=== PATIENT | male | born 1960 | race Caucasian/White ===

== ENCOUNTER 2018-07-01 17:49 | Emergency (ER) | payer OTHER ==
[~2018-07-01] VITALS: Ht 165.1 cm; Wt 74.0 kg
[2018-07-01 17:54] VITALS: Ht 165.1 cm; Wt 74.0 kg
[2018-07-01] MEDS ORDERED: IBUPROFEN 800 MG TAB PO ONE (18:30)
[2018-07-01] MEDS ORDERED: IBUP800T48 PO (20:29)
[2018-07-01 20:47] VITALS: BP 148/98; PULSE 76; RESP 16
--- NOTE | 2018-07-01 22:00 | ERD ---
ER Documentation Chief Complaint Chief Complaint Rt ankle swelling and pain in calf area HPI This is a very pleasant 58-year-old gentleman who presents to the emergency room with swelling to the medial aspect of the right ankle for several days. Patient notes some mild swelling and slight discoloration over this area. He does drive trucks for living. He only notes some mild discomfort when plantar flexing when using the gas pedal. He denies any calf swelling, no recent travel immobilization or surgeries. No prior history of DVT or family history of pulmonary embolism. No fevers or chills. ROS All systems reviewed and are negative except as per history of present illness. Medications Home Meds Active Scripts Ibuprofen* (Motrin*) 800 Mg Tab, 800 MG PO Q6H PRN for PAIN AND OR ELEVATED TEMP, #30 TAB Prov:DAVID ROSA MD 07/01/18 PMhx/Soc History of Surgery: No Anesthesia Reaction: No Hx Neurological Disorder: No Hx Respiratory Disorders: No Hx Cardiac Disorders: No Hx Psychiatric Problems: No Hx Miscellaneous Medical Probl: No Hx Alcohol Use: No Hx Substance Use: No Hx Tobacco Use: No Smoking Status: Never smoker FmHx Family History: No diabetes Physical Exam Vitals Vital Signs Date Temp Pulse Resp B/P (MAP) Pulse Ox O2 O2 Flow FiO2 Time Delivery Rate 07/01/18 76 16 148/98 94 Room Air 20:47 (115) 07/01/18 91 16 152/100 94 Room Air 18:37 (117) 07/01/18 98.1 89 18 161/100 96 17:54 (120) Physical Exam General: Well developed, well nourished, no acute distress Head: Normocephalic, atraumatic. Eyes: Pupils equally reactive, EOM intact ENT: Moist mucous membranes Neck: Supple, no lymphadenopathy Respiratory: Lungs clear bilaterally, no distress Cardiovascular: RRR, no murmurs, rubs, or gallops Abdominal: Soft, non-tender, non-distended, no peritoneal signs : Deferred MSK: Patient with mild swelling overlying the posterior aspect of the medial malleolus of the right lower extremity. Negative Homans sign. 2+ dorsalis pedis and posterior tibial pulses. No bony abnormalities. Joint is without effusion and full active and passive range of motion. Neurologic: Alert and oriented, moving all extremities, normal speech, no focal weakness, no cerebellar signs Skin: No rash Psych: Normal mood Results 24 hrs Current Medications Medications Dose Sig/Chanda Start Time Status Last (Trade) Ordered Route PRN Stop Time Admin Dose Reason Admin Ibuprofen 800 mg ONCE ONCE 07/01/18 DC 07/01/18 (Motrin) PO 18:30 07/01/18 18:15 18:31 Procedures/MDM EKG, MONITORS, & DIAGNOSTIC IMAGING: US duplex IMPRESSION: Thrombus in the posterior tibial vein. No evidence of deep vein thrombus [id number]. Results called to the , at 07/01/2018 7:07:03 PM. RPTAT:AAJJ XR ankle Radiologist report shows no acute process MEDICAL DECISION MAKING: Patient presents with swelling and pain just inferior and posterior to the medial malleolus of the right lower extremity. 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 Consider possible localized inflammatory process along the flexor hallux longus tendon and tendon sheath. Clinically the patient does not exhibit any signs or symptoms concerning for intra-articular process such as gout or Septic joint. ER COURSE: * Duplex shows evidence of thrombus in the posterior tibial vein. This would make sense with the patient's localized swelling. Unclear if the patient's inflammatory process led to the thrombus or if the swelling is related to the thrombus itself. Patient has very minimal symptoms. I had a prolonged conversation with the patient and family members discussing the risk benefits and alternatives of anticoagulation. Options included short-term anticoa gulation with repeat ultrasound versus short-term aspirin with follow-up ultrasound. We discussed the risks of anticoagulation as well as the risk of thromboembolic event. This is a distal DVT with very minimal symptoms. The patient's risk of pulmonary embolism and thromboembolic process is extremely low. There is some risks of bleeding around 3% on anticoagulants. Based on this information the patient would like to proceed with aspirin treatment and repeat ultrasound in 1 week. I believe this is an excellent decision and the patient has informed decision making and capacity. * Patient was advised of strict return precautions and worsening symptoms. CONSULTATION: None DISPOSITION PLAN: The patient does not have an identifiable emergent medical condition that warrants inpatient hospitalization at this time. The patient is deemed safe for discharge with outpatient follow-up. We discussed follow up with the patient's primary care doctor within 24 to 48 hours as needed. We also discussed return to the emergency room for worsening symptoms or worsening condition. Outpatient referral: None required Discharge Medications: Motrin, daily aspirin, repeat ultrasound in 1 week Departure Diagnosis: Primary Impression: DVT, lower extremity, distal, acute Laterality: right Qualified Codes: I82.4Z1 - Acute embolism and thrombosis of unspecified deep veins of right distal lower extremity Condition: Stable Patient Instructions: Dvt Referrals: [facility] YOU HAVE RECEIVED A MEDICAL SCREENING EXAM AND THE RESULTS INDICATE THAT YOU DO NOT HAVE A CONDITION THAT REQUIRES URGENT TREATMENT IN THE EMERGENCY DEPARTMENT. FURTHER EVALUATION AND TREATMENT OF YOUR CONDITION CAN WAIT UNTIL YOU ARE SEEN IN YOUR DOCTORS OFFICE WITHIN THE NEXT 1-2 DAYS. IT IS YOUR RESPONSIBILITY TO MAKE AN APPOINTMENT FOR FOLOW-UP CARE. IF YOU HAVE A PRIMARY DOCTOR --you should call your primary doctor and schedule an appointment IF YOU DO NOT HAVE A PRIMARY DOCTOR YOU CAN CALL OUR PHYSICIAN REFERRAL HOTLINE AT IF YOU CAN NOT AFFORD TO SEE A PHYSICIAN YOU CAN CHOSE FROM THE FOLLOWING [facility] [address] [facility] [address] [facility] [facility] [address] [facility] [facility] [address] [facility] [address] [facility]. [facility]. [address] [facility] [facility] YOU HAVE RECEIVED A MEDICAL SCREENING EXAM AND THE RESULTS INDICATE THAT YOU DO NOT HAVE A CONDITION THAT REQUIRES URGENT TREATMENT IN THE EMERGENCY DEPARTMENT. FURTHER EVALUATION AND TREATMENT OF YOUR CONDITION CAN WAIT UNTIL YOU ARE SEEN IN YOUR DOCTORS OFFICE WITHIN THE NEXT 1-2 DAYS. IT IS YOUR RESPONSIBILITY TO MAKE AN APPOINTMENT FOR FOLOW-UP CARE. IF YOU HAVE A PRIMARY DOCTOR --you should call your primary doctor and schedule and appointment IF YOU DO NOT HAVE A PRIMARY DOCTOR YOU CAN CALL OUR PHYSICIAN REFERRAL HOTLINE AT . IF YOU CAN NOT AFFORD TO SEE A PHYSICIAN YOU CAN CHOSE FROM THE FOLLOWING [facility] INSTITUTIONS: [facility] [address] [place] [address] [facility] [address] [place] [address] [facility] [address] [place] [address] Additional Instructions: It is very important to take a daily aspirin. Keep the ankle wrapped and elevated as much as possible. Stay on your feet. If you have any chest pain or trouble breathing return to the emergency room immediately. You need a repeat ultrasound within 1 week. If symptoms are worsening follow-up sooner. DAVID ROSA MD Jul 01, 2018 22:00
== END 2018-07-01 20:48 | disposition home or self-care (01) ==
LOC: E/R 17:49
DX: I82.4Z1 Acute embolism and thrombosis of unspecified deep veins of right distal lower extremity (principal)
CPT/HCPCS: 73610; 93971; Z7502; Z7610

== ENCOUNTER 2018-07-13 14:51 | Emergency (ER) | payer OTHER ==
[~2018-07-13] VITALS: Ht 170.2 cm; Wt 70.0 kg
[~2018-07-13 14:51] MED LIST: IBUP800T48 PO
[2018-07-13 14:54] VITALS: BP 161/90; PULSE 85; RESP 18; Ht 170.2 cm; Wt 70.0 kg
[2018-07-13] MEDS ORDERED: ASPI81TA52 PO (15:19)
--- NOTE | 2018-07-13 16:31 | ERD ---
ER Documentation Chief Complaint Chief Complaint right ankle swelling need repeat US HPI 58-year-old gentleman who presents for reevaluation after right distal lower extremity DVT. The patient has improved symptoms. No longer is having swelling to the ankle. He has no significant pain. He has been taking aspirin daily. He denies any chest pain or shortness of breath, no pleuritic pain. ROS All systems reviewed and are negative except as per history of present illness. Medications Home Meds Reported Medications Aspirin (Low Dose Aspirin) 81 Mg Tablet.dr, 81 MG PO DAILY, #30 TAB 07/13/18 Discontinued Scripts Ibuprofen* (Motrin*) 800 Mg Tab, 800 MG PO Q6H PRN for PAIN AND OR ELEVATED TEMP, #30 TAB Prov:DAVID ROSA MD 07/01/18 Allergies Allergies: Coded Allergies: No Known Allergy (Unverified , 07/13/18) PMhx/Soc Medical and Surgical Hx: pt denies Medical Hx, pt denies Surgical Hx History of Surgery: No Anesthesia Reaction: No Hx Neurological Disorder: No Hx Respiratory Disorders: No Hx Cardiac Disorders: No Hx Psychiatric Problems: No Hx Miscellaneous Medical Probl: No Hx Alcohol Use: No Hx Substance Use: No Hx Tobacco Use: No Smoking Status: Never smoker FmHx Family History: No diabetes Physical Exam Vitals Vital Signs Date Temp Pulse Resp B/P (MAP) Pulse Ox O2 O2 Flow FiO2 Time Delivery Rate 07/13/18 98.1 85 18 161/90 100 14:54 (113) Physical Exam General: Well developed, well nourished, no acute distress Head: Normocephalic, atraumatic. Eyes: EOM intact ENT: Moist mucous membranes Neck: Full ROM Respiratory: No respiratory distress Cardiovascular: Well perfused distally Abdominal: Nondistended : Deferred MSK: Right lower extremity without significant swelling or tenderness. The patient has normal dorsiflexion and plantarflexion at the ankle. The patient has no unilateral swelling, good distal pulses and negative Homans sign Neurologic: Alert and oriented, moving all extremities, normal speech, steady gait Skin: No rash Psych: Normal mood Procedures/MDM EKG, MONITORS, & DIAGNOSTIC IMAGING: RLE Duplex IMPRESSION: Unchanged DVT of the right posterior tibial vein. MEDICAL DECISION MAKING: The patient presents for reevaluation of DVT. Based on prior visit and evaluation the patient had minimal if any symptoms and decision of the distal DVT treatment was aspirin and surveillance. The patient has improved clinical exam and history. No signs or symptoms concerning for progression or pulmonary embolism. ER COURSE: * The patient's ultrasound shows unchanged distal DVT. Based on current guidelines and recommendations continue surveillance will be appropriate with daily aspirin. No indication for anticoagulation at this time. Patient advised to follow-up in 1 week for repeat ultrasound. Return precautions were discussed and understood. CONSULTATION: None DISPOSITION PLAN: The patient does not have an identifiable emergent medical condition that warrants inpatient hospitalization at this time. The patient is deemed safe for discharge with outpatient follow-up. We discussed follow up with the patient's primary care doctor within 24 to 48 hours as needed. We also discussed return to the emergency room for worsening symptoms or worsening condition. Outpatient referral: None required Discharge Medications: Daily aspirin Departure Diagnosis: Primary Impression: DVT, lower extremity, distal, acute Laterality: right Qualified Codes: I82.4Z1 - Acute embolism and thrombosis of unspecified deep veins of right distal lower extremity Condition: Stable Patient Instructions: Dvt Referrals: [facility] YOU HAVE RECEIVED A MEDICAL SCREENING EXAM AND THE RESULTS INDICATE THAT YOU DO NOT HAVE A CONDITION THAT REQUIRES URGENT TREATMENT IN THE EMERGENCY DEPARTMENT. FURTHER EVALUATION AND TREATMENT OF YOUR CONDITION CAN WAIT UNTIL YOU ARE SEEN IN YOUR DOCTORS OFFICE WITHIN THE NEXT 1-2 DAYS. IT IS YOUR RESPONSIBILITY TO MAKE AN APPOINTMENT FOR FOLOW-UP CARE. IF YOU HAVE A PRIMARY DOCTOR --you should call your primary doctor and schedule an appointment IF YOU DO NOT HAVE A PRIMARY DOCTOR YOU CAN CALL OUR PHYSICIAN REFERRAL HOTLINE AT IF YOU CAN NOT AFFORD TO SEE A PHYSICIAN YOU CAN CHOSE FROM THE FOLLOWING [facility] [address] [facility] [address] [facility] [facility] [address] [facility] [address] [facility] [address] [facility] [address] [facility]. [facility] YOU HAVE RECEIVED A MEDICAL SCREENING EXAM AND THE RESULTS INDICATE THAT YOU DO NOT HAVE A CONDITION THAT REQUIRES URGENT TREATMENT IN THE EMERGENCY DEPARTMENT. FURTHER EVALUATION AND TREATMENT OF YOUR CONDITION CAN WAIT UNTIL YOU ARE SEEN IN YOUR DOCTORS OFFICE WITHIN THE NEXT 1-2 DAYS. IT IS YOUR RESPONSIBILITY TO MAKE AN APPOINTMENT FOR FOLOW-UP CARE. IF YOU HAVE A PRIMARY DOCTOR --you should call your primary doctor and schedule and appointment IF YOU DO NOT HAVE A PRIMARY DOCTOR YOU CAN CALL OUR PHYSICIAN REFERRAL HOTLINE AT . IF YOU CAN NOT AFFORD TO SEE A PHYSICIAN YOU CAN CHOSE FROM THE FOLLOWING [facility] INSTITUTIONS: [facility] [address] [place] [address] [facility] [address] [place], [place] [id number] [place] [address] [address] [place] [address] Additional Instructions: Repeat ultrasound within 1 week for continued surveillance. Continue daily aspirin. Return for worsening swelling, pain or chest pain or fainting episodes. DAVID ROSA MD Jul 13, 2018 16:31
== END 2018-07-13 16:55 | disposition home or self-care (01) ==
LOC: E/R 14:51
DX: I82.4Z1 Acute embolism and thrombosis of unspecified deep veins of right distal lower extremity (principal)
CPT/HCPCS: 93971; Z7502